=== PATIENT | female | born 1985 | race Caucasian/White ===

== ENCOUNTER 2016-08-25 15:31 | Inpatient (IN) | payer MEDICAID ==
[~2016-08-25] VITALS: Ht 160 cm; Wt 99.1 kg
[~2016-08-25 15:31] MED LIST: PREN1TAB9
[2016-08-25 16:14] VITALS: BP 137/87; PULSE 100; RESP 19; Ht 160 cm; Wt 99.1 kg
[2016-08-25 16:21] LABS: ADD SCAN DIFF NO
[2016-08-25 16:25] LABS: BASOPHILS % 0.1 % (0.0-2.0); EOSINOPHILS % 0.2 % (0.0-7.0); HEMATOCRIT 32.3 % (37.0-47.0); HEMOGLOBIN 10.1 g/dl (12.0-16.0); LYMPHOCYTES # 2.4 10^3/ul (0.8-2.9); LYMPHOCYTES % 25.8 % (15.0-51.0); MEAN CORPUSCULAR HEMOGLOBIN 22.6 pg (29.0-33.0); MEAN CORPUSCULAR HGB CONC 31.3 g/dl (32.0-37.0); MEAN CORPUSCULAR VOLUME 72.4 fl (82.0-101.0); MONOCYTE # 0.6 10^3/ul (0.3-0.9); MONOCYTES % 6.3 % (0.0-11.0); NEUTROPHIL # 6.2 10^3/ul (1.6-7.5); NEUTROPHILS % 67.1 % (39.0-77.0); PLATELET COUNT 275 10^3/UL (140-415); RED BLOOD COUNT 4.46 10^6/ul (4.20-5.40); RED CELL DISTRIBUTION WIDTH 15.4 % (11.5-14.5); WHITE BLOOD COUNT 9.3 10^3/ul (4.8-10.8)
[2016-08-25] MEDS ORDERED: CARBOPROST 250 MCG INJ IM PRN (16:30)
[2016-08-25] MEDS ORDERED: LIDOCAINE 1% (MPF) 30 ML INJ INJ PRN (16:30)
[2016-08-25] MEDS ORDERED: OXYTOCIN 30 UNITS/LR 500 ML IV SCH ×2 (16:30)
[2016-08-25] MEDS ORDERED: OXYTOCIN 30 UNITS/LR 500 ML IV PRN (16:30)
[2016-08-25] MEDS ORDERED: MISOPROSTOL 200 MCG TAB PR PRN (16:30)
[2016-08-25] MEDS ORDERED: BUTORPHANOL 2 MG INJ IV PRN ×2 (16:30)
[2016-08-25] MEDS ORDERED: METHYLERGONOVINE 0.2 MG INJ IM PRN (16:30)
[2016-08-25 16:44] LABS: INR 0.97; PARTIAL THROMBOPLASTIN TIME 25.9 Sec (25.0-35.0); PROTIME 12.9 Sec (12.2-14.2)
[2016-08-25] MEDS: LACTATED RINGER'S 1,000 ML IV SCH (16:44)
[2016-08-25] MEDS ORDERED: METH250T PO (16:46)
[2016-08-25 17:29] LABS: ALBUMIN 3.4 g/dl (3.3-4.9); ALBUMIN/GLOBULIN RATIO 0.85; BILIRUBIN,INDIRECT 0.1 mg/dl (0-1.1); BILIRUBIN,TOTAL 0.1 mg/dl (0.2-1.3); CALCIUM 9.1 mg/dl (8.4-10.2); CREATININE 0.5 mg/dl (0.44-1.00); POTASSIUM 3.8 mmol/L (3.5-5.1); TOTAL PROTEIN 7.4 g/dl (6.1-8.1); URIC ACID 3.8 mg/dl (3.1-7.9)
[2016-08-25] MEDS ORDERED: LACTATED RINGER'S 1,000 ML IV PRN (20:00)
[2016-08-25] MEDS ORDERED: FENTAnyl 2MCG/ML-ROPIV 0.2% 100 ML ONE (20:55)
[2016-08-25] MEDS ORDERED: ONDANSETRON 4 MG INJ IV PRN (21:30)
[2016-08-25] MEDS ORDERED: NALOXONE (0.4 MG/ML) INJ IV PRN (21:30)
[2016-08-25] MEDS ORDERED: FENTAnyl 2MCG/ML-ROPIV 0.2% 100 ML BAG EPI SCH (21:30)
[2016-08-25] MEDS ORDERED: DIPHENHYDRAMINE 50 MG INJ IV PRN (21:30)
[2016-08-25] MEDS: METHYLDOPA 250 MG TAB PO SCH (22:02)
[2016-08-26] VITALS (12 sets, daily range): BP systolic 134–181; BP diastolic 74–98; PULSE 93–117; RESP 18–20
[2016-08-26] MEDS: LACTATED RINGER'S 1,000 ML IV SCH ×2 (03:16→05:11)
[2016-08-26] MEDS ORDERED: GENTAMICIN 120 MG/NS (PMX) 100 ML IVPB SCH (03:30)
[2016-08-26] MEDS ORDERED: ACETAMINOPHEN 500 MG TAB PO PRN (03:30)
[2016-08-26] MEDS ORDERED: GENTAMICIN 80 MG/NS (PMX) 50 ML IVPB SCH (03:30)
[2016-08-26] MEDS ORDERED: AMPICILLIN 2 GM/NS (PMX) 100 ML IVPB ONE (03:30)
[2016-08-26] MEDS ORDERED: AMPICILLIN 1 GM/NS (PMX) 50 ML IVPB SCH (05:00)
[2016-08-26] MEDS ORDERED: LABETALOL HCL 20MG INJ IV ONE (05:00)
[2016-08-26] MEDS: METHYLDOPA 250 MG TAB PO SCH ×3 (05:59→22:16)
[2016-08-26] MEDS ORDERED: CEFAZOLIN 2 GM/50 ML (PMX) 50 ML IVPB ONE (07:30)
[2016-08-26] MEDS ORDERED: MAGNESIUM SULFATE 4 GM/100 ML 100 ML ONE (08:32)
[2016-08-26] MEDS ORDERED: MAGNESIUM SULFATE 4 GM/100 ML 100 ML IV SCH (09:00)
[2016-08-26] MEDS ORDERED: CA GLUCONATE (GM) 10% 10ML INJ IV PRN (09:00)
[2016-08-26] MEDS: MAGNESIUM SULFATE 20 GM/500 ML 500 ML IV SCH ×2 (09:27→18:50)
--- NOTE | 2016-08-26 11:23 | HP ---
Date/Time of Note Date/Time of Note DATE: 08/26/16 TIME: 11:21 OB - History Hx of Present Chief Complaint: contractions Estimated Due Date: Sep 16, 2016 : 3 Para: 1 Spontaneous : 1 Therapeutic : 0 Care: Good Care Ultrasounds: Normal mid trimester US Obstetrical Complications: None Medical Complications: Cardiovascular (chronic hypertension) Past Family/Social History * Past Medical, Surgical, Family and Obstetric Histories reviewed from chart. GBS Status: Negative OB Admission Exam Vital Signs Vital Signs Vital Signs Date Time Temp Pulse Resp B/P Pulse Ox O2 Delivery O2 Flow Rate FiO2 08/25/16 16:14 98.4 100 19 137/87 Room Air Physical Exam HEENT: WNL Heart: Rhythm Normal Lungs: Clear Abdomen: WNL Extremities: Normal Reflexes: Normal Cervical Dilatation: 5cm Effacement: 50% Station: -1 Membranes: Intact Heart Rate: 130's Accelerations: Accelerations Present Decelerations: No Decelerations Varibility: Moderate Last 72 hours Lab Results CBC & BMP 08/25/16 14:54 08/25/16 14:59 Liver Function Test 08/25/16 14:54 Alanine Aminotransferase (ALT/SGPT) 29 Albumin 3.4 Alkaline Phosphatase 172 H Aspartate Amino Transf (AST/SGOT) 31 Direct Bilirubin 0.00 Total Protein 7.4 OB Assessment/Plan Reason for admission: active labor Plan: Expectant Management NOE DESAI MD Aug 26, 2016 11:23
--- NOTE | 2016-08-26 11:27 | LDN ---
Date/Time of Note Date/Time of Note DATE: 08/26/16 TIME: 11:24 Delivery Summary Weeks of Gestation 37 weeks Placenta Delivered: Spontaneously Meconium: none Episiotomy: No Perineal laceration: 1 Laceration repair: Second degree laceration repaired with 2-0 Vicryl. Anesthesia type: Epidural Estimated blood loss: 300 Sponge & Needle done & correct: Yes All needle counts correct: Yes Any foreign bodies felt in the: No Problems: Infant Delivery Information Sex Sex: male Apgars 1 Minute: 9 5 Minute: 9 Suctioning Nose & mouth suctioned at calvin: Yes Delee suction performed: No Umbilical Cord Umbilical cord with: 3 Vessels Cord presentations: no nuchal cord Cord Blood was obtained: Yes Mother & Baby Disposition Disposition Mom & Baby to Maternity; Good: Yes NOE DESAI MD Aug 26, 2016 11:27
[2016-08-26] MEDS ORDERED: CARBOPROST 250 MCG INJ IM PRN (12:00)
[2016-08-26] MEDS ORDERED: BENZOCAINE 20% 56 ML SPRAY TOP PRN (12:00)
[2016-08-26] MEDS ORDERED: ONDANSETRON 4 MG INJ IV PRN (12:00)
[2016-08-26] MEDS ORDERED: DIBUCAINE 1% 30 GM OINT TOP PRN (12:00)
[2016-08-26] MEDS ORDERED: ACETAMINOPHEN/CODEINE #3 TAB PO PRN (12:00)
[2016-08-26] MEDS ORDERED: ACETAMINOPHEN 325 MG TAB PO PRN (12:00)
[2016-08-26] MEDS ORDERED: OXYTOCIN 30 UNITS/LR 500 ML IV PRN (12:00)
[2016-08-26] MEDS ORDERED: LANOLIN 7 GM TUBE TOP PRN (12:00)
[2016-08-26] MEDS ORDERED: WITCH HAZEL/GLYCERIN PAD PR PRN (12:00)
[2016-08-26] MEDS ORDERED: MISOPROSTOL 200 MCG TAB PR PRN (12:00)
[2016-08-26] MEDS: LACTATED RINGER'S 1,000 ML IV* SCH (13:25)
[2016-08-26] MEDS: SENNA/DOCUSATE NA (8.6MG/50MG) TAB PO SCH ×2 (14:00→21:06)
[2016-08-27] VITALS (17 sets, daily range): BP systolic 121–174; BP diastolic 72–96; PULSE 86–106; RESP 17–20
[2016-08-27] MEDS: LACTATED RINGER'S 1,000 ML IV* SCH ×2 (02:02→03:51)
[2016-08-27] MEDS: MAGNESIUM SULFATE 20 GM/500 ML 500 ML IV SCH (03:09)
[2016-08-27] MEDS: METHYLDOPA 250 MG TAB PO SCH ×3 (06:16→21:49)
[2016-08-27 08:32] LABS: ADD SCAN DIFF NO
--- NOTE | 2016-08-27 08:37 | QN ---
Documentation Comment No complaint Afebrile VSS Fundus firm Lochia scant Stable D/c magnesium sulfate Continue anti-hypertensive medications. NOE DESAI MD Aug 27, 2016 08:37
[2016-08-27 08:39] LABS: BASOPHILS % 0.1 % (0.0-2.0); EOSINOPHILS # 0.1 10^3/ul (0.0-0.5); EOSINOPHILS % 0.4 % (0.0-7.0); HEMATOCRIT 31.2 % (37.0-47.0); HEMOGLOBIN 9.6 g/dl (12.0-16.0); LYMPHOCYTES # 2.6 10^3/ul (0.8-2.9); MEAN CORPUSCULAR HEMOGLOBIN 22.1 pg (29.0-33.0); MEAN CORPUSCULAR HGB CONC 30.8 g/dl (32.0-37.0); MEAN CORPUSCULAR VOLUME 71.9 fl (82.0-101.0); MEAN PLATELET VOLUME 10.2 fl (7.4-10.4); MONOCYTE # 0.7 10^3/ul (0.3-0.9); MONOCYTES % 4.3 % (0.0-11.0); NEUTROPHIL # 12.6 10^3/ul (1.6-7.5); NEUTROPHILS % 78.8 % (39.0-77.0); PLATELET COUNT 284 10^3/UL (140-415); RED BLOOD COUNT 4.34 10^6/ul (4.20-5.40); RED CELL DISTRIBUTION WIDTH 15.7 % (11.5-14.5)
[2016-08-27] MEDS: SENNA/DOCUSATE NA (8.6MG/50MG) TAB PO SCH ×2 (08:53→21:48)
[2016-08-28] VITALS (11 sets, daily range): BP systolic 129–147; BP diastolic 75–100; PULSE 86–100; RESP 18–20
[2016-08-28] MEDS: METHYLDOPA 250 MG TAB PO SCH ×3 (06:36→22:09)
[2016-08-28 08:34] LABS: ADD SCAN DIFF NO
[2016-08-28 08:42] LABS: BASOPHILS % 0.2 % (0.0-2.0); EOSINOPHILS # 0.1 10^3/ul (0.0-0.5); EOSINOPHILS % 0.8 % (0.0-7.0); HEMATOCRIT 30.6 % (37.0-47.0); HEMOGLOBIN 9.4 g/dl (12.0-16.0); LYMPHOCYTES # 2.6 10^3/ul (0.8-2.9); LYMPHOCYTES % 19.6 % (15.0-51.0); MEAN CORPUSCULAR HEMOGLOBIN 22.3 pg (29.0-33.0); MEAN CORPUSCULAR HGB CONC 30.7 g/dl (32.0-37.0); MEAN CORPUSCULAR VOLUME 72.5 fl (82.0-101.0); MEAN PLATELET VOLUME 9.6 fl (7.4-10.4); MONOCYTE # 0.6 10^3/ul (0.3-0.9); MONOCYTES % 4.4 % (0.0-11.0); NEUTROPHIL # 9.9 10^3/ul (1.6-7.5); NEUTROPHILS % 74.5 % (39.0-77.0); PLATELET COUNT 272 10^3/UL (140-415); RED BLOOD COUNT 4.22 10^6/ul (4.20-5.40); RED CELL DISTRIBUTION WIDTH 15.9 % (11.5-14.5); WHITE BLOOD COUNT 13.2 10^3/ul (4.8-10.8)
[2016-08-28] MEDS ORDERED: DIPHTH/TET/ACEL PERTUSS (ADULT) 0.5 ML VIAL IM* ONE (09:00)
[2016-08-28] MEDS: FERROUS SULFATE (EC) 325 MG TAB PO SCH ×3 (09:01→22:08)
[2016-08-28] MEDS: SENNA/DOCUSATE NA (8.6MG/50MG) TAB PO SCH ×2 (09:01→22:08)
--- NOTE | 2016-08-28 21:02 | QN ---
Documentation Comment No complaint Afebrile BP improved Fundus Firm Lochia scant Continue present care Monitor BP. NOE DESAI MD Aug 28, 2016 21:02
[2016-08-29 04:00] VITALS: BP_SYST 111; BP_SYST 131; BP_DIAS 69; BP_DIAS 84; PULSE 108; PULSE 68; RESP 19; RESP 20
[2016-08-29] MEDS: METHYLDOPA 250 MG TAB PO SCH ×2 (06:00→13:47)
[2016-08-29 08:00] VITALS: BP 147/97; PULSE 98; RESP 18
[2016-08-29] MEDS: FERROUS SULFATE (EC) 325 MG TAB PO SCH ×2 (09:41→13:47)
[2016-08-29] MEDS: SENNA/DOCUSATE NA (8.6MG/50MG) TAB PO SCH (09:41)
[2016-08-29 12:00] VITALS: BP 144/99; PULSE 108; RESP 18
[2016-08-29 17:35] VITALS: BP 152/96; PULSE 105; RESP 18
--- NOTE | 2016-09-01 04:38 | DS ---
DATE OF ADMISSION: 08/25/2016 DATE OF DISCHARGE: 08/29/2016 ADMITTING DIAGNOSIS: at 36 weeks and 6 days with chronic hypertension, in labor. HISTORY OF PRESENT ILLNESS: This 30-year-old female, 3, para 1-0-1-1 at the time of admission, para 2-0-1-2 at the time of discharge. The patient presented with labor contractions. PAST MEDICAL HISTORY: Chronic hypertension. The patient was on Aldomet during . HOSPITAL COURSE: The patient was admitted on 08/25/2016. Patient progressed in labor to full dilatation. Patient had a spontaneous vaginal delivery on 08/26/2016. During the period the patient's blood pressure was noted to be increasing to 70 range. The patient was given intravenous magnesium sulfate for seizure prophylaxis. The patient was also continued on Aldomet and hydralazine was given in addition to Aldomet to control her blood pressure. After 24 hours magnesium sulfate was discontinued. The patient was continued on Aldomet and hydralazine. Patient's blood pressure improved. Patient is discharged on day number 3. DISCHARGE CONDITION: Stable. DISCHARGE INSTRUCTIONS: Diet is low-salt diet. Activities; pelvic rest. MEDICATIONS: 1. Aldomet 250 mg p.o. t.i.d. 2. Hydralazine 10 mg p.o. every 6 hours. 3. Continue with vitamins and ferrous sulfate. FOLLOW UP: In the office in 5 days. FINAL DIAGNOSES: 1. Term , delivered vaginally. 2. Chronic hypertension. 3. Superimposed preeclampsia with severe features. 4. Mother with single live born. Dictated By: Vamsi Holman MD /[email or web address] /Document#: [id number]
--- NOTE | 2016-09-01 10:44 | NSTRPT ---
NST Information Datetime Report Generated by CPN: 09/01/2016 10:44 Datetime: 08/25/2016 13:00 NST Information EGA: 36.6 Test Number: 10 Time on Monitor: 08/25/2016 13:25 Time off Monitor: 08/25/2016 14:21 NST Duration (Min): 56 Reason for NST: Chronic Hypertension Test and Monitor Explained: Monitor Explained; Test Explained; Verbalized Understanding Pulse: 106 Resp: 18 SBP: 164 DBP: 102 Test Evaluation NST Interventions: Reposition Patient Patient States Movement: Present Contraction Frequency: occasional, denies FHR Baseline : 150 Variability: Moderate 6-25bpm Accelerations: 15X15 Decelerations: None FHR Category: Category I NST Results: Reactive Comments: To u/s, CARTER 15.8cm, cephalic EFW 3854gms (95%), AC 99%, 1425-Report called to juany Bautista VS, denies H/A, or GHTN sign or symptoms, Dr Paul recomme nds induction today, instead of tomorrow. Order received for EFW and admit to L_D. POC explained to pt, states understanding, Pt to u/s for EFW. 1452-Pt asks if she can go home first, instructed her to go to the hosp, due to BP's elevated and it is safer for her and the baby. States will go to ho sp now. Pt to L_D Electronically Signed By E-Signature: with User ID: [id number] Datetime: 08/21/2016 10:17 NST Information EGA: 36.2 NST Duration (Min): 36 Datetime: 08/18/2016 13:14 NST Information EGA: 35.6 NST Duration (Min): 27 Datetime: 08/15/2016 13:16 NST Information EGA: 35.3 NST Duration (Min): 26 Datetime: 08/13/2016 13:21 NST Information EGA: 35.1 NST Duration (Min): 32 Datetime: 08/07/2016 13:23 NST Information EGA: 34.2 NST Duration (Min): 21 Datetime: 08/04/2016 13:25 NST Information EGA: 33.6 NST Duration (Min): 46 Datetime: 07/31/2016 13:40 NST Information EGA: 33.2 NST Duration (Min): 37 Datetime: 07/28/2016 13:25 NST Information EGA: 32.6 NST Duration (Min): 34 Datetime: 07/23/2016 14:08 NST Information EGA: 32.1 Datetime: 07/23/2016 13:05 NST Duration (Min): 60
== END 2016-08-29 18:15 | disposition home or self-care (01) | DRG 774 ==
LOC: L-D 15:31 → PP1 08-26 12:05
PROVIDERS: ADMIT Obstetrics & Gynecology; ATTEND Obstetrics & Gynecology
PROC: 10E0XZZ Delivery of Products of Conception, External Approach (ICD-10-PCS; principal; 2016-08-26)
PROC: 0KQM0ZZ Repair Perineum Muscle, Open Approach (ICD-10-PCS; 2016-08-26)
PROC: 3E00X4Z Introduction of Serum, Toxoid and Vaccine into Skin and Mucous Membranes, External Approach (ICD-10-PCS; 2016-08-28)
DX: O70.0 First degree perineal laceration during delivery (principal); O10.92 Unspecified pre-existing hypertension complicating childbirth; Z37.0 Single live birth; Z23 Encounter for immunization; Z3A.37 37 weeks gestation of pregnancy
CPT/HCPCS: 62319; 80053; 83735; 84560; 85025; 85610; 85730; 86592; 86900; 86901; 87070; 88307; 90715; 99464; J0690; J2590; J3010; J3475; J7120

== ENCOUNTER 2018-04-23 20:17 | Emergency (ER) | payer BC, MEDICAID ==
[~2018-04-23] VITALS: Ht 160 cm; Wt 98.0 kg
[~2018-04-23 20:17] MED LIST changes: +METH250T21 PO
[2018-04-23 20:42] VITALS: Ht 160 cm; Wt 98.0 kg
--- NOTE | 2018-04-24 00:43 | ERD ---
ER Documentation Chief Complaint Chief Complaint L thumb injury today,slammed by car door HPI 32-year-old female, previously healthy, right-handed, presents emergency department, complaining of left thumb pain after sustaining a crush injury with a car door. ROS All systems reviewed and are negative except as per history of present illness. Medications Home Meds Active Scripts Ibuprofen* (Motrin*) 600 Mg Tab, 600 MG PO Q8, #20 TAB Prov:MIKE CASTLE MD 04/24/18 Reported Medications Methyldopa* (Methyldopa*) 250 Mg Tablet, 250 MG PO Q8, TAB 08/25/16 Vits W-Ca,Fe,Fa(<1MG) ( #2) 1 Tab Tablet 01/01/13 Allergies Allergies: Coded Allergies: No Known Drug Allergies (Verified Allergy, Unknown, 08/25/16) PMhx/Soc History of Surgery: No Anesthesia Reaction: No Hx Neurological Disorder: No Hx Respiratory Disorders: No Hx Cardiac Disorders: Yes (HTN) Hx Psychiatric Problems: No Hx Alcohol Use: No Hx Substance Use: No Hx Tobacco Use: No FmHx Family History: No diabetes, No coronary disease Physical Exam Vitals Vital Signs Date Temp Pulse Resp B/P (MAP) Pulse Ox O2 O2 Flow FiO2 Time Delivery Rate 04/23/18 98.0 95 18 164/101 100 20:42 (122) Physical Exam Const: No acute distress Head: Atraumatic Eyes: Normal Conjunctiva ENT: Normal External Ears, Nose and Mouth. Neck: Full range of motion. No meningismus. Resp: Clear to auscultation bilaterally Cardio: Regular rate and rhythm, no murmurs Abd: Soft, non tender, non distended. Normal bowel sounds Skin: No petechiae or rashes Back: No midline or flank tenderness Ext: Left thumb with ecchymosis, edema with decreased range of motion. Distal neurovascular exam intact. Neur: Awake and alert Psych: Normal Mood and Affect Procedures/MDM Differential diagnosis considered include but not limited are: sprain/strain, ligament injury, fracture, dislocation, low suspicion for acute infectious process. Soft compartments, neurovascular exam grossly intact. Physical examination and clinical presentation consistent with left thumb finger sprain During the ED course the patient received treatment with padded metallic splint presenting overall improvement of the symptoms. Splint evaluation: Type: Padded metallic finger splint Location: Left thumb Position: good alignment in anatomical position Neurovascular intact Results and clinical impression discussed with patient who agrees with management. The patient is stable to be treated outpatient and will be discharged home with recommendations for ice, rest and partial immobilization. NSAIDs 3 times daily for 5 days and close monitoring. The patient was instructed to follow up with the primary care provider in the next 48h. If symptoms persist, worsen or new symptoms develop, then patient should return to the ED immediately. Instructions explained and given to patient with acknowledgment and demonstrated understanding. Disclaimer: Inadvertent spelling and grammatical errors are likely due to EHR/dictation software use and do not reflect on the overall quality of patient care. Also, please note that the electronic time recorded on this note does not necessarily reflect the actual time of the patient encounter. Departure Diagnosis: Primary Impression: Injury of left thumb Condition: Stable Additional Instructions: Thank you very much for allowing us to participate in your care. Your health and safety is our top priority at [facility]. Call your primary care doctor TOMORROW for an appointment during the next 2-4 days and bring all the information and medications prescribed. Have prescriptions filled and follow precisely the directions on the label. If the symptoms get worse and your provider is unavailable, return to the Emergency Department immediately. MIKE CASTLE MD Apr 24, 2018 00:43
[2018-04-24] MEDS ORDERED: IBUP-1542 PO (02:08)
[2018-04-24 02:22] VITALS: BP 161/109; PULSE 94; RESP 18
== END 2018-04-24 02:24 | disposition home or self-care (01) ==
LOC: FTE 20:17
DX: S69.92XA Unspecified injury of left wrist, hand and finger(s), initial encounter (principal); I10 Essential (primary) hypertension; W23.0XXA Caught, crushed, jammed, or pinched between moving objects, initial encounter; Y92.9 Unspecified place or not applicable
CPT/HCPCS: 73140